=== PATIENT | male | born 1945 | race Caucasian/White ===

== ENCOUNTER → 2017-01-30 | Outpatient (CLI) | payer MEDICARE, BC ==
[2017-01-30 12:59] LABS: EKG EKG PERFORMED
[2017-01-30 14:04] LABS: CH 27.8; CHCM 31.9; HCT 42.3 % (39.0-53.0); HDW 2.72; HGB 13.4 gm/dL (13.0-17.5); MCH 27.7 pg (25.0-35.0); MCHC 31.6 g/dL (31.0-37.0); MCV 87.4 fL (80.0-100.0); Mean Platelet Volume 8.4; RBC 4.83 m/uL (4.30-5.90); RDW 13.7 % (11.5-15.5); WBC 4.8 k/uL (3.8-10.6)
[2017-01-30 14:17] LABS: Anion Gap 9 mmol/L; Blood Urea Nitrogen 22 mg/dL (9-20); Calcium 9.2 mg/dL (8.4-10.2); Carbon Dioxide 28 mmol/L (22-30); Chloride 103 mmol/L (98-107); Glucose 83 mg/dL (74-99); Non-African American GFR(MDRD) >60 (>60 ml/min/1.73 sqM); Potassium 4.9 mmol/L (3.5-5.1); Sodium 140 mmol/L (137-145)
== END | disposition home or self-care (01) ==
LOC: LABWHC1 12:29
PROVIDERS: ATTEND Family Medicine
DX: R07.9 Chest pain, unspecified (principal); R51 Headache; J01.90 Acute sinusitis, unspecified; M25.512 Pain in left shoulder
CPT/HCPCS: 80048; 84484; 85027; 93005; 36415; J0190

== ENCOUNTER → 2017-02-01 | Outpatient (CLI) | payer MEDICARE, BC ==
--- NOTE | 2017-02-01 13:27 | EST ---
DATE OF SERVICE: 02/01/2017 AGE: 71Y SEX: M HT: 68" WT: 219 lbs. Protocol Carlitos: Other: Stage: Dur. of Exercise: 4 minutes *Heart Rate Blood Pressure *Rest: 84 Rest: 136/92 * *Max. Achieved: 156 Maximum BP: 181/91 85% PMHR: 128 100% PMHR: 151 *METS: 5.8 INDICATIONS: Chest pain. MEDICATIONS: 1. Lisinopril. 2. Difluconec. 3. Lipitor. Baseline rhythm is sinus mechanism, rate 84, normal axis and intervals, normal electrocardiogram. Baseline blood pressure 136/92 mmHg. Patient exercised on Carlitos protocol for 4 minutes reaching peak rate of 156 beats per minute which is equal to 100% maximum predicted heart rate. Peak blood pressure 166/71 mmHg. Test was terminated because of fatigue. There was no chest pain. Electrocardiographic monitoring revealed no evidence of diagnostic ischemic ST deviation. FINDINGS: Baseline echocardiogram revealed normal wall motion at peak exercise. There was normal wall motion augmentation with no hypokinesia or dyskinesia. CONCLUSION: 1. Poor exercise tolerance with normal electrocardiograph response to exercise. 2. Normal stress echocardiogram with no evidence of stress-induced ischemia.
== END | disposition home or self-care (01) ==
LOC: RADNMMAIN 10:20
PROVIDERS: ATTEND Family Medicine
DX: R07.9 Chest pain, unspecified (principal); R06.00 Dyspnea, unspecified
CPT/HCPCS: 93017; 93350

== ENCOUNTER → 2017-10-08 | Outpatient (CLI) | payer MEDICARE, BC ==
--- NOTE | 2017-10-08 11:36 | PN ---
PROGRESS NOTE A 72-year-old male patient coming to see me in followup regarding his obstructive sleep apnea. This is the patient's annual check up. The patient has severe RITA with an AHI of 39 and currently is on a BiPAP pressure of 8/4 cm of water utilizing a wisp nose mask. He is doing well. He has no specific complaints. Weight has been stable. He is utilizing his BiPAP every night. He is very compliant. He is benefitting from the treatment. His [place] score is at 0. Based on the compliance data over the past 30 days, His compliancy of CPAP use is 100%. He is averaging 6.7 hours of CPAP use per night. AHI is down to 1.3 without any central apneas. No leaks around the mask. 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 Otherwise no other new complaints. The rest of the comorbidities are all inactive and stable for now. His blood pressure is under decent control. BP is 139/79, pulse 82, respirations 16, temperature 97.9, saturation 97% on room air, BMI 32.3, weight is 213, height is 5 feet 8 inches. GENERAL APPEARANCE: Calm, comfortable. Head is atraumatic, normocephalic. Neck is supple. There is no JVD. There is no goiter or neck masses. LUNGS: Clear to auscultation. Heart sounds regular rate and rhythm. Normal S1, S2. No S3. No murmurs. ABDOMEN: Soft, nontender. No organomegaly. EXTREMITIES: No edema. No cyanosis or clubbing. SKIN: No wounds or sores or ulceration. NEURO: Alert and oriented x3. There is no focal neurological deficits. IMPRESSION: 1. Symptomatic obstructive sleep apnea well treated with a BiPAP pressure of 80/40. Treatment remains successful. Baseline AHI is 38. 2. Chronic hypersomnia recovered completely with CPAP therapy. 3. Degenerative arthritis. 4. Hypertension, well controlled for now. PLAN: 1. Encourage weight loss. 2. Continue BiPAP therapy at same level of pressure. 3. Refill the mask and supplies. 4. See me back in a few year's time and follow up earlier if needed. MMODL / IJN: [id number] /
== END | disposition home or self-care (01) ==
LOC: SLEEP 09:44
PROVIDERS: ATTEND Internal Medicine Critical Care Medicine
DX: G47.33 Obstructive sleep apnea (adult) (pediatric) (principal); G47.10 Hypersomnia, unspecified; M19.90 Unspecified osteoarthritis, unspecified site; I10 Essential (primary) hypertension

== ENCOUNTER → 2017-12-12 | Outpatient (CLI) | payer BC, MEDICARE ==
--- NOTE | 2017-12-12 11:06 | US ---
EXAMINATION TYPE: US abdomen limited DATE OF EXAM: 12/12/2017 COMPARISON: NONE CLINICAL HISTORY: R10.11 RUQ PAIN. Chest and right flank pain 4 days ago, history of cholecystectomy EXAM MEASUREMENTS: Liver Length: 15.2 cm Gallbladder Wall: surgically absent CBD: 0.5 cm Right Kidney: 10.2 x 4.4 x 4.3 cm Pancreas: obscured by overlying midline bowel gas Liver: increased echogenicity, increased attenuation with decreased visualization of vessels. This i s most commonly related to hepatic steatosis and limits evaluation for hepatic masses. Gallbladder: surgically absent Evidence for sonographic Rodriguez's sign: no CBD: visualized portions wnl, limited by overlying bowel gas Right Kidney: wnl IMPRESSION: 1. Increased and heterogenous hepatic echotexture most compatible with hepatic steatosis appearing mo derate in degree. Correlate with LFTs. 2. No evidence of hydronephrosis or nephrolithiasis within the right kidney.
== END | disposition home or self-care (01) ==
LOC: RADUSWWP 09:30
PROVIDERS: ATTEND Family Medicine
DX: K76.89 Other specified diseases of liver (principal); R10.11 Right upper quadrant pain
CPT/HCPCS: 76705

== ENCOUNTER → 2018-04-15 | Outpatient (CLI) | payer MEDICARE ==
[2018-04-15 13:17] LABS: Creatinine 24 Hour,Urine 1468.8 mg/24hr (1000.0-2000.0)
== END | disposition home or self-care (01) ==
LOC: LABWHC1 11:22
PROVIDERS: ATTEND Family Medicine
DX: R94.4 Abnormal results of kidney function studies (principal)
CPT/HCPCS: 36415; 82575

== ENCOUNTER → 2018-04-23 | Outpatient (CLI) | payer MEDICARE ==
--- NOTE | 2018-04-23 11:24 | US ---
EXAMINATION TYPE: US kidneys/renal and bladder DATE OF EXAM: 04/23/2018 COMPARISON: US abd lmt CLINICAL HISTORY: R94.4 ABN KIDNEY FUNCTIONS. EXAM MEASUREMENTS: Right Kidney: 10.7 x 4.5 x 4.3 cm Left Kidney: 10.1 x 5.3 x 5.0 cm Right Kidney: No hydronephrosis or masses seen Left Kidney: No hydronephrosis or masses seen Bladder: not well distended Bilateral Jets seen: No There is no evidence for hydronephrosis at this point in time. No nephrolithiasis is seen. No dawson s are identified. The urinary bladder is anechoic. Bilateral ureteral jets are seen. IMPRESSION: No evidence of hydronephrosis or nephrolithiasis. No sonographic sequela of medical renal disease.
== END | disposition home or self-care (01) ==
LOC: RADUSWWP 10:08
PROVIDERS: ATTEND Family Medicine
DX: R94.4 Abnormal results of kidney function studies (principal)
CPT/HCPCS: 76770

== ENCOUNTER 2018-05-14 11:04 | Emergency (ER) | payer MEDICARE ==
[2018-05-14 11:14] VITALS: BP 126/77; PULSE 86; RESP 16; TEMP 97.9
--- NOTE | 2018-05-14 11:19 | ED ---
Fall HPI - General Chief Complaint: Fall Stated Complaint: lt knee pain Time Seen by Provider: 05/14/18 11:04 Source: patient, EMS, RN notes reviewed Mode of arrival: EMS Limitations: physical limitation - History of Present Illness Initial Comments: This is a 72-year-old male who states he is working on his deck this morning when he stumbled over a board and fell hyperflexing his left knee behind his back. He is brought in by EMS he states he has a lot of pain when he tries to move his left lower extremity the pain is isolated to his left knee he denies any head neck back pain other extremity injury no loss of consciousness. He is on no blood thinners. He has no other modifying factors at this time MD Complaint: fall - Related Data Previous Rx's Medication Instructions Recorded Ketorolac [Toradol] 10 mg PO Q6HR #20 tab 05/14/18 Orphenadrine [Norflex] 100 mg PO Q12H #7 tablet.er 05/14/18 Allergies Allergy/AdvReac Type Severity Reaction Status Date / Time No Known Allergies Allergy Verified 05/14/18 11:08 Review of Systems ROS Statement: Those systems with pertinent positive or pertinent negative responses have been documented in the HPI. ROS Other: All systems not noted in ROS Statement are negative. Past Medical History Past Medical History: Hypertension, Osteoarthritis (OA) History of Any Multi-Drug Resistant Organisms: None Reported Past Surgical History: Cholecystectomy, Hernia Repair Past Psychological History: No Psychological Hx Reported Smoking Status: Former smoker Past Alcohol Use History: None Reported Past Drug Use History: None Reported General Exam - General Exam Comments Initial Comments: This is a well-developed well-nourished awake alert oriented 3 male he does demonstrate a Aryln Coma Scale of 15 General appearance: alert, in no apparent distress Head exam: Present: atraumatic, normocephalic, normal inspection Eye exam: Present: normal appearance, PERRL, EOMI. Absent: scleral icterus, conjunctival injection, periorbital swelling ENT exam: Present: normal exam, mucous membranes moist Neck exam: Present: normal inspection. Absent: tenderness, meningismus, lymphadenopathy Respiratory exam: Present: normal lung sounds bilaterally. Absent: respiratory distress, wheezes, rales, rhonchi, stridor Cardiovascular Exam: Present: regular rate, normal rhythm, normal heart sounds. Absent: systolic murmur, diastolic murmur, rubs, gallop, clicks GI/Abdominal exam: Present: soft, normal bowel sounds. Absent: distended, tenderness, guarding, rebound, rigid Extremities exam: Present: tenderness, normal capillary refill, other ( Examination left lower extremity demonstrates some evidence of edema noted patella no definite step-off or crepitation decreased range of motion secondary to pain some tenderness palpation over the especially anterior and medial and lateral aspects of the knee. Unable to perform a complete evaluation due to pain at this time. Distally no evidence of any trauma no basilar neuro injuries no palpable tenderness proximal to this area. No tenderness over the hips or pelvis.). Absent: full ROM, pedal edema, joint swelling, calf tenderness Back exam: Present: normal inspection Neurological exam: Present: alert, oriented X3, CN II-XII intact Psychiatric exam: Present: normal affect, normal mood Skin exam: Present: warm, dry, intact, normal color. Absent: rash Course Vital Signs 05/14/18 11:09 Temperature 97.9 F Pulse Rate 86 Respiratory 16 Rate Blood Pressure 126/77 O2 Sat by Pulse 97 Oximetry Medical Decision Making - Medical Decision Making I did discuss findings with the patient's family. Patient does not want any pain medication at this time he'll place a knee immobilizer will be discharged with appropriate pain medication in addition to a prescription for crutches he is weight-bear as tolerated and follow up with orthopedics in excellent 2 days for reevaluation of the knee and possible MRI. - Radiology Data Radiology results: report reviewed (I did review the imaging and report no evidence of fracture or subluxation.), image reviewed Disposition Clinical Impression: Fall, Left knee sprain Disposition: HOME SELF-CARE Condition: Good Instructions: Knee Sprain (ED), Fall Prevention (ED) Prescriptions: Ketorolac [Toradol] 10 mg PO Q6HR #20 tab Orphenadrine [Norflex] 100 mg PO Q12H #7 tablet.er Is patient prescribed a controlled substance at d/c from ED?: No Referrals: Dileep Ba MD [Primary Care Provider] - 1-2 days Juan Rodriguez MD [STAFF PHYSICIAN] - 1-2 days
--- NOTE | 2018-05-14 11:36 | XR ---
EXAMINATION TYPE: XR knee 4V LT DATE OF EXAM: 05/14/2018 CLINICAL HISTORY: TECHNIQUE: Three views of the left knee are obtained. COMPARISON: None. FINDINGS: There is no acute fracture/dislocation evident in left knee. The tri-compartment joint sp aces appear within normal limits. Calcifications superimpose the soft tissues of the suprapatellar re gion consistent with calcification of the quadriceps. Calcification also projects inferior to the pat jovany. IMPRESSION: There is no acute fracture or dislocation in the left knee. Multiple calcifications superimposing the soft tissues superior and inferior to the patella indicativ e of calcification in the quadriceps tendon and patellar tendons suspected probably related to old tr auma. No significant fluid is a joint space. If symptoms persist MRI may be performed for further khalida luation.
== END 2018-05-14 12:37 | disposition home or self-care (01) ==
LOC: EC 11:04
DX: S83.92XA Sprain of unspecified site of left knee, initial encounter (principal); R40.2412 Glasgow coma scale score 13-15, at arrival to emergency department; Z87.891 Personal history of nicotine dependence; W18.09XA Striking against other object with subsequent fall, initial encounter; Y93.89 Activity, other specified
CPT/HCPCS: 99284 ×2; 73564; L1830

== ENCOUNTER 2018-05-19 14:58 | Emergency (ER) | payer MEDICARE ==
[2018-05-19] MEDS ORDERED: SODIUM CHLORIDE 0.9% 1,000 ML IV STA (15:38)
[2018-05-19 16:06] LABS: Basophils % (A) 0 %; Eosinophils # (A) 0.1 k/uL (0-0.7); Eosinophils % (A) 1 %; HCT 40.7 % (39.0-53.0); HGB 13.5 gm/dL (13.0-17.5); Lymphocytes # (A) 0.6 k/uL (1.0-4.8); Lymphocytes % (A) 8 %; MCH 28.3 pg (25.0-35.0); MCHC 33.2 g/dL (31.0-37.0); MCV 85.2 fL (80.0-100.0); Mean Platelet Volume 7.7; Monocytes # (A) 0.5 k/uL (0-1.0); Monocytes % (A) 6 %; Neutrophils # (A) 6.8 k/uL (1.3-7.7); Neutrophils % (A) 84 %; Platelet Count 160 k/uL (150-450); RBC 4.78 m/uL (4.30-5.90); RDW 13.8 % (11.5-15.5); WBC 8.1 k/uL (3.8-10.6)
[2018-05-19 16:22] LABS: Albumin 4.2 g/dL (3.5-5.0); Potassium 4.2 mmol/L (3.5-5.1); Total Bilirubin 1.3 mg/dL (0.2-1.3); Total Protein 6.3 g/dL (6.3-8.2)
[2018-05-19 16:26] LABS: Prothrombin Time 10.2 sec (9.0-12.0)
[2018-05-19 16:28] LABS: Partial Thromboplastin Time 19.9 sec (22.0-30.0)
[2018-05-19 16:33] LABS: Creatine Kinase 210 U/L (55-170)
[2018-05-19 16:46] LABS: Creatine Kinase MB 0.3 ng/mL (0.0-2.4); Troponin I <0.012 ng/mL (0.000-0.034)
--- NOTE | 2018-05-19 17:22 | CT ---
EXAMINATION TYPE: CT brain wo con DATE OF EXAM: 05/19/2018 COMPARISON: 03/16/2016 HISTORY: Multiple recent falls. Headache. CT DLP: 1100 mGycm Automated exposure control for dose reduction was used. FINDINGS: There is mild cerebral cortical atrophy. There is no mass effect nor midline shift. There is no sign of intracranial hemorrhage. The calvarium is intact. IMPRESSION: NO ACUTE INTRACRANIAL ABNORMALITY. NO CHANGE.
--- NOTE | 2018-05-19 17:24 | XR ---
EXAMINATION TYPE: XR chest 2V DATE OF EXAM: 05/19/2018 COMPARISON: NONE HISTORY: Syncope TECHNIQUE: Frontal and lateral views of the chest are obtained. FINDINGS: Heart and mediastinum are normal. Lungs are clear. Diaphragm is normal. There is some spur ring in the thoracic spine. IMPRESSION: No active cardiopulmonary disease. Normal heart.
--- NOTE | 2018-05-19 17:26 | XR ---
EXAMINATION TYPE: XR knee 4V RT DATE OF EXAM: 05/19/2018 COMPARISON: NONE HISTORY: Knee pain TECHNIQUE: 4 views FINDINGS: There is minimal spurring of the medial femoral and tibial condyles. I see no fracture nor dislocation. There is a 9 mm calcification above the patella consistent with old injury. There is a 7 mm defect in the cortical bone of the superior aspect of the patella that probably relates to old in jury. There is no sign of joint effusion. IMPRESSION: Minimal osteoarthritic changes. No fracture seen. No acute bony abnormality.
--- NOTE | 2018-05-19 18:20 | ED ---
General Adult HPI - General Chief complaint: Fall Stated complaint: knee injury, syncope Time Seen by Provider: 05/19/18 15:14 Source: patient, EMS Mode of arrival: EMS Limitations: no limitations - History of Present Illness Initial comments: 72 years old male got dizzy today he fell landed on his right knee pain he got dizzy prior to that than the right side he passed out for 2 minutes he injured his left knee weak for. He denies any head injury no neck injury no chest pain no shortness of breath no abdominal pain no frequency urgency dysuria or symptoms of TIA or CVA - Related Data Home Medications Medication Instructions Recorded Confirmed Diclofenac Sodium [Voltaren] 75 mg PO BID 05/19/18 05/19/18 Lisinopril [Prinivil] 10 mg PO HS 05/19/18 05/19/18 Naproxen Sodium [Aleve] 440 mg PO DAILY PRN 05/19/18 05/19/18 Allergies Allergy/AdvReac Type Severity Reaction Status Date / Time No Known Allergies Allergy Verified 05/19/18 15:57 Review of Systems ROS Statement: Those systems with pertinent positive or pertinent negative responses have been documented in the HPI. ROS Other: All systems not noted in ROS Statement are negative. Past Medical History Past Medical History: Hypertension, Osteoarthritis (OA) History of Any Multi-Drug Resistant Organisms: None Reported Past Surgical History: Cholecystectomy, Hernia Repair Past Psychological History: No Psychological Hx Reported Smoking Status: Former smoker Past Alcohol Use History: None Reported Past Drug Use History: None Reported General Exam - General Exam Comments Initial Comments: General: The patient is awake and alert, in no distress, and does not appear acutely ill. Skin: Skin is warm and dry and no rashes or lesions are noted. Eye: Pupils are equal, round and reactive to light, extra-ocular movements are intact; there is normal conjunctiva bilaterally. Ears, nose, mouth and throat: There are moist mucous membranes and no oral lesions. Neck: The neck is supple, there is no tenderness or JVD. Cardiovascular: There is a regular rate and rhythm. No murmur, rub or gallop is appreciated. Respiratory: To auscultation bilateral, no wheezing no rhonchi no distress respiratory [place] noticed Gastrointestinal: Soft, non-distended, non-tender abdomen without masses or organomegaly noted. There is no rebound or guarding present. Bowel sounds are unremarkable. Back: There is no tenderness to palpation in the midline. There is no obvious deformity. Musculoskeletal: Decreased range of motion over the right knee noticed some suprapatellar area effusion/swelling as well no neurovascular compromise noticed of the right distal lower extremity Neurological: CN II-XII intact, Cranial nerves III through XII are intact. There are no obvious motor or sensory deficits. Coordination appears grossly intact. Speech is normal. Psychiatric: Cooperative, appropriate mood & affect, normal judgment. Limitations: no limitations Course Vital Signs 05/19/18 15:08 Temperature 98.7 F Pulse Rate 77 Respiratory 20 Rate Blood Pressure 127/75 O2 Sat by Pulse 99 Oximetry CBC, INR, comp his metabolic panel, troponin are normal creatinine is 1.30 x- ray did not show any fracture chest x-ray and CT head were normal all these findings were discussed with the patient he does have crutches at home he do not want any pain medications he uses [id number] nonsteroidal anti- inflammatories and I agree with the area and he has appointment with the Dr. Amin the orthopedic surgeon for his left knee and he plans to see him with the right knee as well Medical Decision Making - Lab Data Result diagrams: 05/19/18 15:55 05/19/18 15:55 Lab Results 05/19/18 05/19/18 05/19/18 Range/Units 15:55 15:55 15:55 WBC 8.1 (3.8-10.6) k/uL RBC 4.78 (4.30-5.90) m/uL Hgb 13.5 (13.0-17.5) gm/dL Hct 40.7 (39.0-53.0) % MCV 85.2 (80.0-100.0) fL MCH 28.3 (25.0-35.0) pg MCHC 33.2 (31.0-37.0) g/dL RDW 13.8 (11.5-15.5) % Plt Count 160 (150-450) k/uL Neutrophils % 84 % Lymphocytes % 8 % Monocytes % 6 % Eosinophils % 1 % Basophils % 0 % Neutrophils # 6.8 (1.3-7.7) k/uL Lymphocytes # 0.6 L (1.0-4.8) k/uL Monocytes # 0.5 (0-1.0) k/uL Eosinophils # 0.1 (0-0.7) k/uL Basophils # 0.0 (0-0.2) k/uL PT (9.0-12.0) sec INR (<1.2) APTT (22.0-30.0) sec Sodium 140 (137-145) mmol/L Potassium 4.2 (3.5-5.1) mmol/L Chloride 103 (98-107) mmol/L Carbon Dioxide 25 (22-30) mmol/L Anion Gap 12 mmol/L BUN 18 (9-20) mg/dL Creatinine 1.30 H (0.66-1.25) mg/dL Est GFR (CKD-EPI)AfAm 64 (>60 ml/min/1.73 sqM) Est GFR (CKD-EPI)NonAf 55 (>60 ml/min/1.73 sqM) Glucose 84 (74-99) mg/dL Calcium 9.0 (8.4-10.2) mg/dL Total Bilirubin 1.3 (0.2-1.3) mg/dL AST 34 (17-59) U/L ALT 53 (21-72) U/L Alkaline Phosphatase 71 (38-126) U/L Total Creatine Kinase 210 H (55-170) U/L CK-MB (CK-2) 0.3 (0.0-2.4) ng/mL CK-MB (CK-2) Rel Index 0.1 Troponin I <0.012 (0.000-0.034) ng/mL Total Protein 6.3 (6.3-8.2) g/dL Albumin 4.2 (3.5-5.0) g/dL 05/19/18 Range/Units 15:55 WBC (3.8-10.6) k/uL RBC (4.30-5.90) m/uL Hgb (13.0-17.5) gm/dL Hct (39.0-53.0) % MCV (80.0-100.0) fL MCH (25.0-35.0) pg MCHC (31.0-37.0) g/dL RDW (11.5-15.5) % Plt Count (150-450) k/uL Neutrophils % % Lymphocytes % % Monocytes % % Eosinophils % % Basophils % % Neutrophils # (1.3-7.7) k/uL Lymphocytes # (1.0-4.8) k/uL Monocytes # (0-1.0) k/uL Eosinophils # (0-0.7) k/uL Basophils # (0-0.2) k/uL PT 10.2 (9.0-12.0) sec INR 1.0 (<1.2) APTT 19.9 L (22.0-30.0) sec Sodium (137-145) mmol/L Potassium (3.5-5.1) mmol/L Chloride (98-107) mmol/L Carbon Dioxide (22-30) mmol/L Anion Gap mmol/L BUN (9-20) mg/dL Creatinine (0.66-1.25) mg/dL Est GFR (CKD-EPI)AfAm (>60 ml/min/1.73 sqM) Est GFR (CKD-EPI)NonAf (>60 ml/min/1.73 sqM) Glucose (74-99) mg/dL Calcium (8.4-10.2) mg/dL Total Bilirubin (0.2-1.3) mg/dL AST (17-59) U/L ALT (21-72) U/L Alkaline Phosphatase (38-126) U/L Total Creatine Kinase (55-170) U/L CK-MB (CK-2) (0.0-2.4) ng/mL CK-MB (CK-2) Rel Index Troponin I (0.000-0.034) ng/mL Total Protein (6.3-8.2) g/dL Albumin (3.5-5.0) g/dL Disposition Clinical Impression: Syncope, Knee contusion Disposition: HOME SELF-CARE Is patient prescribed a controlled substance at d/c from ED?: No Referrals: Dileep Ba MD [Primary Care Provider] - 1-2 days Durga Amin MD [REFERRING] - 1-2 days
[2018-05-19 19:06] VITALS: BP 128/68; PULSE 70; RESP 18; TEMP 98.1
== END 2018-05-19 19:16 ==
LOC: EC 14:58
DX: S80.01XA Contusion of right knee, initial encounter (principal); R55 Syncope and collapse; I10 Essential (primary) hypertension; M19.90 Unspecified osteoarthritis, unspecified site; Z87.891 Personal history of nicotine dependence; Z79.1 Long term (current) use of non-steroidal anti-inflammatories (NSAID); Z79.899 Other long term (current) drug therapy; W18.39XA Other fall on same level, initial encounter; Y92.89 Other specified places as the place of occurrence of the external cause
CPT/HCPCS: 36415; 70450; 71046; 80053; 82550; 82553; 84484; 85025; 85610; 85730; 93005; 99285

== ENCOUNTER → 2018-10-21 | Outpatient (CLI) | payer MEDICARE ==
--- NOTE | 2018-10-21 12:46 | PN ---
PROGRESS NOTE Naun is doing well. He is a 73-year-old male patient with known history of obstructive sleep apnea, severe with an AHI of 39, currently on a BiPAP pressure of 88, over 4 cm of water. He is coming in for annual compliancy check and followup. Doing well. No specific complaints. No cardiovascular events. No heart attack or cardiac arrhythmias, no history of any CVA. He has been very compliant. He is using the with the Wisp nose mask. Based on the compliance data, the patient has been utilizing a BiPAP more than 4 hours, more than 90% of the time. Average BiPAP use around 7.1 hours per night. Leak factor is 8 L per minute and his AHI while on treatment is down to 1.8. His weight was 213, he is currently weighing around 218. No hypersomnia or sleepiness during the day. He does not fall asleep while driving. REVIEW OF SYSTEMS: 12-point review of system was done. Positive findings are mentioned above in history of present illness. There are few pounds weight gain. No headache, no altered mentation. No hypersomnia or sleepiness. No seizure activity. No chest pain. Heartburn, shortness of breath at night, no significant arthritic pain. No sleep fragmentation, no hypersomnia or sleepiness during the day. PHYSICAL EXAMINATION: BP is 110/70, pulse 98, respirations 16, temperature 97.1, weight is 218, height is 5, 8, [place] score is 0, BMI 33.1. GENERAL APPEARANCE: Calm, comfortable. Head is atraumatic, normocephalic. NECK: Supple. No JVD. No goiter or neck masses. Mallampati class IV. LUNGS: Clear to auscultation. HEART: Sounds regular rate and rhythm. Normal S1, S2. No S3, S4. No murmurs. ABDOMEN: Soft, nontender. No organomegaly. EXTREMITIES: No cyanosis or clubbing. NEUROLOGIC: Alert and oriented x3. No focal neurological deficits. PSYCHIATRIC: Negative for anxiety or depression. IMPRESSION: 1. Severe obstructive sleep apnea with an apnea-hypopnea index of 38. Currently on a BiPAP at a pressure of 8/4. The patient is in compliancy and he continues to benefit from the treatment. 2. Obesity with interval few pounds weight gain, body mass index 33.1, weight is 218. 3. Hypersomnia, recovered while on BiPAP therapy. PLAN: 1. Would offer this patient Air Fit N20 medium-size nose mask. 2. Encourage weight loss. 3. The patient is in compliance and continues to benefit from the treatment. See me back in a year's time. No issues for now. MMODL / IJN: [id number] /
== END ==
LOC: SLEEP 10:14
PROVIDERS: ATTEND Internal Medicine Critical Care Medicine
DX: G47.33 Obstructive sleep apnea (adult) (pediatric) (principal); E66.9 Obesity, unspecified; Z99.89 Dependence on other enabling machines and devices; Z68.33 Body mass index [BMI] 33.0-33.9, adult

== ENCOUNTER → 2019-07-10 | Outpatient (CLI) | payer MEDICARE ==
--- NOTE | 2019-07-10 10:24 | US ---
EXAMINATION TYPE: US kidneys/renal and bladder DATE OF EXAM: 07/10/2019 COMPARISON: 04/23/2018 CLINICAL HISTORY: 73-year-old male R94.4 abnormal kidney function. Follow-up to previous. TECHNIQUE: Multiple sonographic images of the kidneys and bladder are obtained. FINDINGS: EXAM MEASUREMENTS: Right Kidney: 10.2 x 4.1 x 4.1 cm Left Kidney: 9.8 x 5.4 x 4.1 cm No hydronephrosis on either side. Bladder: Partial distention of the bladder limits its evaluation. Bilateral Jets seen: No IMPRESSION: No hydronephrosis.
== END ==
LOC: RADUSWWP 09:23
PROVIDERS: ATTEND Family Medicine
DX: R94.4 Abnormal results of kidney function studies (principal)
CPT/HCPCS: 76770

== ENCOUNTER → 2019-10-13 | Outpatient (CLI) | payer MEDICARE ==
--- NOTE | 2019-10-13 14:14 | PN ---
PROGRESS NOTE A 74-year-old male patient with known history of obstructive sleep apnea coming in for an annual check. The patient's AHI of 39 and currently he is using BiPAP at a pressure of 8/4 cm of water. No new complaint, treatment is still successful. I checked the machine. His compliancy is showing an average use of 5.7 hours per night. Compliance for more than 4 hours of BiPAP use in order of 70%. Tidal volume is at 318. Respiratory rate is 18. Apnea-hypopnea index is down to 1.5 and his minute ventilation is 6.8 L/minutes. No fever. No chills. No significant weight gain. In fact, the patient has lost around 10-11 pound since the last evaluation. No other significant events overnight. No other health issues. No new onset cardiovascular complications. REVIEW OF SYSTEMS: A 14-point review of system was done. Positive findings were mentioned above in the history of present illness. His current vital signs are BP is 127/66, pulse 74, respirations 16, temperature 98.0, saturation 99% on room air. BMI 31.4. GENERAL APPEARANCE: Calm, comfortable. HEAD: Atraumatic, normocephalic. NECK: Supple. There is no JVD. No goiter or neck masses. LUNGS: Clear to auscultation. HEART: Sounds are regular rate and rhythm. Normal S1, S2. No murmurs. ABDOMEN: Soft, nontender. No organomegaly. EXTREMITIES: No edema. No cyanosis or clubbing. NEUROLOGIC: Alert and oriented x3. No focal neurological deficits. PSYCHIATRIC: Negative for anxiety or depression. IMPRESSION: 1. Severe symptomatic obstructive sleep apnea with an apnea-hypopnea index of 34, currently on a BiPAP at a pressure of 8/4. 2. Hypersomnia, improved with BiPAP therapy. PLAN: 1. Encourage further weight loss. 2. Continue BiPAP with the same pressure setting. 3. I offered him a Dream Wear nose mask to try and decide if this is something that he would like to use in the future. 4. See me back in a year's time in followup, earlier if needed. Treatment is successful. No need for any further adjustment. MMODL / IJN: [id number] /
== END | disposition home or self-care (01) ==
LOC: SLEEP 10:43
PROVIDERS: ATTEND Internal Medicine Critical Care Medicine
DX: G47.33 Obstructive sleep apnea (adult) (pediatric) (principal); Z99.89 Dependence on other enabling machines and devices

== ENCOUNTER → 2019-12-11 | Outpatient (CLI) | payer MEDICARE ==
--- NOTE | 2019-12-11 12:15 | CT ---
EXAMINATION TYPE: CT chest w con DATE OF EXAM: 12/11/2019 COMPARISON: None HISTORY: abnormal chest xray, lung nodule CT DLP: 480 mGycm Automated exposure control for dose reduction was used. CONTRAST: CT scan of the chest is performed with IV Contrast, patient injected with 100 mL of Isovue 300. FINDINGS: LUNGS: The lungs are grossly clear, there is no concerning parenchymal mass or nodule identified. T here is no pleural effusion or pneumothorax seen. The tracheobronchial tree is patent. MEDIASTINUM: There are no greater than 1 cm hilar or mediastinal lymph nodes. No pericardial effusi on is seen. Thoracic aorta is of normal caliber. The heart is not enlarged. UPPER ABDOMEN: No significant abnormality appreciated. OTHER: No additional significant abnormality is seen. IMPRESSION: No distinct pulmonary nodule or mass.
== END | disposition home or self-care (01) ==
LOC: RADCTMAIN 09:57
PROVIDERS: ATTEND Internal Medicine
DX: R91.1 Solitary pulmonary nodule (principal)
CPT/HCPCS: 82565; 84520; 71260; 36415; Q9967

== ENCOUNTER → 2020-01-13 | Outpatient (CLI) | payer MEDICARE ==
--- NOTE | 2020-01-13 12:47 | CT ---
EXAMINATION TYPE: CT brain wo con DATE OF EXAM: 01/13/2020 HISTORY: Headache. Trigeminal neuralgia. CT DLP: 1213 mGycm. Automated Exposure Control for Dose Reduction was Utilized. TECHNIQUE: CT scan of the head is performed without contrast. COMPARISON: CT brain May 19, 2018. FINDINGS: There is no acute intracranial hemorrhage or midline shift identified. There is diffuse v entricular and sulcal prominence consistent with diffuse age-related cerebral atrophy. There is low- attenuation in the periventricular white matter consistent with chronic small vessel ischemic change. The globes are intact and the visualized sinuses are clear. IMPRESSION: No acute intracranial hemorrhage or midline shift. There is [id number] diffuse ag e-related cerebral atrophy and chronic small vessel ischemic change redemonstrated. No significant c hange from prior CT.
--- NOTE | 2020-01-13 12:57 | US ---
EXAMINATION TYPE: US carotid duplex BILAT DATE OF EXAM: 01/13/2020 COMPARISON: NONE CLINICAL HISTORY: R51 headache,G50.0 Trigeminal neuralgia. Headache EXAM MEASUREMENTS: RIGHT: Peak Systolic Velocity (PSV) cm/sec ----- Right CCA: 69.2 ----- Right ICA: 73.5 ----- Right ECA: 67.7 ICA/CCA ratio: 1.1 RIGHT: End Diastole cm/sec ----- Right CCA: 19.8 ----- Right ICA: 29.9 ----- Right ECA: 9.6 LEFT: Peak Systolic Velocity (PSV) cm/sec ----- Left CCA: 72.2 ----- Left ICA: 81.5 ----- Left ECA: 66.9 ICA/CCA ratio: 1.1 LEFT: End Diastole cm/sec ----- Left CCA: 22.0 ----- Left ICA: 36.5 ----- Left ECA: 11.4 VERTEBRALS (direction of flow): Right Vertebral: Antegrade Left Vertebral: Antegrade Rhythm: Normal Mild amount of plaque visualized, No elevated velocities, no significant stenosis IMPRESSION: Mild degree of grayscale atheromatous plaquing with no sonographically evident hemodynam ically significant stenosis within either visualized carotid arterial system. Criteria for Assigning % of Stenosis / Diameter reduction (Estimation based on the indirect measurements of the internal carotid artery velocities (ICA PSV). 1. Normal (no stenosis)=ICA PSV < 125 cm/s: ratio < 2.0: ICA EDV<40 cm/s. 2. Less than 50% stenosis=ICA PSV < 125 cm/s: ratio < 2.0: ICA EDV<40 cm/s. 3. 50 to 69% stenosis=ICA PSV of 125 to 230 cm/s: ration 2.0 ? 4.0: ICA EDV 40-100 cm/s. 4. Greater than 70% stenosis to near occlusion= ICA PSV > 230 cm/s: ratio > 4.0: ICA EDV > 100 cm/s. 5. Near occlusion= ICA PSV velocities may be low or undetectable: variable ratio and ICA EDV. 6. Total occlusion=unable to detect flow.
--- NOTE | 2020-01-14 08:01 | ECHOF ---
Referral Reason:R51 headache,G50.0 Trigeminal neuralgia MEASUREMENTS -------- HEIGHT: 172.7 cm WEIGHT: 94.8 kg BP: RVIDd: 3.3 cm (< 3.3) IVSd: 1.4 cm (0.6 - 1.1) LVIDd: 3.4 cm (3.9 - 5.3) LVPWd: 1.5 cm (0.6 - 1.1) IVSs: 1.7 cm LVIDs: 2.5 cm LVPWs: 1.6 cm LAESV Index (A-L): 18.58 ml/m Ao Diam: 2.8 cm (2.0 - 3.7) AV Cusp: 2.2 cm (1.5 - 2.6) MV EXCURSION: 12.148 mm (> 18.000) MV EF SLOPE: 37 mm/s (70 - 150) EPSS: 1.0 cm MV E Scott: 0.52 m/s MV DecT: 224 ms MV A Scott: 0.67 m/s MV E/A Ratio: 0.78 RAP: 5.00 mmHg RVSP: 16.42 mmHg FINDINGS -------- Sinus rhythm. This was a technically adequate study. The left ventricular size is normal. There is moderate concentric left ventricular hypertrophy. O verall left ventricular systolic function is normal with, an EF between 55 - 60 %. The diastolic fi lling pattern is normal for the age of the patient 8.78. The right ventricle is mildly enlarged. Normal LA size by volume 22+/-6 ml/m2. The right atrial size is normal. Interatrial and interventricular septum intact. The aortic valve is trileaflet and appears structurally normal. There is no evidence of aortic regu rgitation. There is no evidence of aortic stenosis. There is trace to mild mitral regurgitation. Mild tricuspid regurgitation present. There is no evidence of pulmonary hypertension. The right v entricular systolic pressure, as measured by Doppler, is 16.42mmHg. Trace/mild (physiologic) pulmonic regurgitation. The aortic root size is normal. IVC Not well visulized. There is no pericardial effusion. CONCLUSIONS -------- 1. Sinus rhythm. 2. This was a technically adequate study. 3. The left ventricular size is normal. 4. There is moderate concentric left ventricular hypertrophy. 5. Overall left ventricular systolic function is normal with, an EF between 55 - 60 %. 6. The diastolic filling pattern is normal for the age of the patient 8.78 7. The right ventricle is mildly enlarged. 8. Normal LA size by volume 22+/-6 ml/m2. 9. The right atrial size is normal. 10. Interatrial and interventricular septum intact. 11. The aortic valve is trileaflet and appears structurally normal. 12. There is no evidence of aortic regurgitation. 13. There is no evidence of aortic stenosis. 14. There is trace to mild mitral regurgitation. 15. Mild tricuspid regurgitation present. 16. There is no evidence of pulmonary hypertension. 17. The right ventricular systolic pressure, as measured by Doppler, is 16.42mmHg. 18. Trace/mild (physiologic) pulmonic regurgitation. 19. The aortic root size is normal. 20. IVC Not well visulized. 21. There is no pericardial effusion. AREA FIELD PERSON: Bhargavi Rodriguez RDCS
== END | disposition home or self-care (01) ==
LOC: RADECHMAIN 11:55
PROVIDERS: ATTEND Family Medicine
DX: I67.82 Cerebral ischemia (principal); G31.9 Degenerative disease of nervous system, unspecified; I65.23 Occlusion and stenosis of bilateral carotid arteries; I08.1 Rheumatic disorders of both mitral and tricuspid valves; G50.0 Trigeminal neuralgia
CPT/HCPCS: 70450; 93306; 93880

== ENCOUNTER → 2020-12-13 | Outpatient (CLI) | payer MEDICARE ==
--- NOTE | 2020-12-13 12:52 | PN ---
PROGRESS NOTE This patient is coming in for an annual check regarding obstructive sleep apnea. The patient has severe RITA with an AHI of 34 and the patient continues to be on a BiPAP at a pressure of 8/4 cm of water. He continues to be very successfully treated while on BiPAP. No recent weight gain or weight loss. His current weight is around 218 pounds. Based on a 30-day compliancy, the patient has been averaging around 6.9 hours of CPAP use per night and CPAP use for more than 4 hours is around 70%. The leak is around 12 L/minute and tidal volume is at 360 with a rate of 17 and a minute ventilation of 6.3 L/minute and his AHI is down to 1.5. Doing well. Alert and awake. No tiredness. No fatigue. Renovo score is down to 5. No nocturnal chest pain, shortness of breath, angina or heartburn. REVIEW OF SYSTEMS: Fourteen-point review of system was done. Positive findings were mentioned in history of present illness. PHYSICAL EXAMINATION: VITAL SIGNS: BP is 126/82, pulse is 70, respirations 16, temperature 97.7 saturation 97% on room air, BMI 32.1, weight is 218. Renovo score is 4. GENERAL APPEARANCE: Obese, calm, comfortable. HEAD: Atraumatic, normocephalic. NECK: Supple. There is no JVD. There is no goiter or neck mass. LUNGS: Diminished otherwise clear. HEART: Heart sounds are regular rate and rhythm. Normal S1, S2. No S3, no S4. No murmurs. ABDOMEN: Soft, nontender. No organomegaly. EXTREMITIES: No edema. No cyanosis or clubbing. NEUROLOGIC: Awake and alert. There is no focal neurological deficits. PSYCHIATRIC: Negative for anxiety or depression. IMPRESSION: Severe symptomatic obstructive sleep apnea, AHI of 34, continues to be adequately treated. The patient is currently on BiPAP treatment with a pressure of 8/4 cm of water. Compliance data was checked. No major hypersomnia or sleepiness. No other cardiovascular complications. PLAN: 1. Keep BiPAP at same level of pressures of 8/4. 2. Refill the supplies through his DME [facility]. 3. Encourage weight loss. 4. See me back in a year's time. 5. Treatment is successful no need for any further adjustment at this point in time. MMODL / IJN: [id number] /
== END | disposition home or self-care (01) ==
LOC: SLEEP 10:34
PROVIDERS: ATTEND Internal Medicine Critical Care Medicine
DX: G47.33 Obstructive sleep apnea (adult) (pediatric) (principal); Z99.89 Dependence on other enabling machines and devices

== ENCOUNTER → 2021-08-16 | Outpatient (CLI) | payer MEDICARE ==
[2021-08-16 18:05] LABS: HCT 45.5 % (39.6-50.0); MCH 27.5 pg (27.0-32.0); MCHC 30.8 g/dL (32.0-37.0); MCV 89.4 fL (80.0-97.0); Mean Platelet Volume 11.1 fL (9.5-12.2); Platelet Count 144 X 10*3/uL (140-440); RBC 5.09 X 10*6/uL (4.40-5.60); RDW 12.9 % (11.5-14.5); WBC 6.11 X 10*3/uL (4.50-10.00)
[2021-08-16 19:30] LABS: Chol/HDL Ratio 3.46 Ratio
== END | disposition home or self-care (01) ==
LOC: LABWHC1 10:27
PROVIDERS: ATTEND Internal Medicine Cardiovascular Disease
DX: I10 Essential (primary) hypertension (principal); I25.9 Chronic ischemic heart disease, unspecified; E78.5 Hyperlipidemia, unspecified
CPT/HCPCS: 36415; 80053; 80061; 85027

== ENCOUNTER → 2021-12-19 | Outpatient (CLI) | payer MEDICARE ==
--- NOTE | 2021-12-19 18:40 | PN ---
PROGRESS NOTE Naun is 76, coming in for an annual check regarding obstructive sleep apnea. He is doing extremely well. He has severe RITA with an AHI of 34. He benefits from the CPAP therapy. He is waking up refreshed and alert during the day. He is still on a BiPAP pressure of 8/4 cm of water, doing well. No complaints. He has been averaging around 6.1 hours of BiPAP use per night with a leak of 17 L/minute, tidal volume of 380 mL and a respiratory rate of 16. His AHI is down to 1.7, indicating successful treatment. Note that he was infected with COVID and he recovered without any major difficulties. No chest pain. No shortness of breath. No hypersomnia or sleepiness. No fatigue. No other new complaints. PHYSICAL EXAMINATION: VITAL SIGNS: BP is 112/76, pulse 69, respirations 16, temperature 96.9, weight is 212. Tecumseh Score is zero. GENERAL APPEARANCE: Calm, comfortable. HEAD: Atraumatic, normocephalic. Neck is supple. No JVD. No goiter or neck masses. LUNGS: Clear to auscultation. Heart sounds are regular rate and rhythm. Normal S1, S2. No S3, S4. No murmurs. ABDOMEN: Soft, nontender. No organomegaly. EXTREMITIES: No edema. No cyanosis or clubbing. NEUROLOGIC: Awake and alert. There is no focal neurological deficit. IMPRESSION: 1. Symptomatic obstructive sleep apnea; AHI of 34, successfully treated with a BiPAP pressure of 8/4 cm of water. 2. Compliance data was checked. The patient is adequately using the machine. 3. Hypersomnia, recovered. Tecumseh score is down to zero. 4. Hyperlipidemia. 5. Hypertension. 6. History of COVID-19 infection, recovered, without any major complications. PLAN: 1. Maintain same BiPAP pressure. 2. No need for any adjustments. Supplies will be refilled and the patient will see me back in a year's time in followup, earlier if needed. MMODL / IJN: [id number] /
== END ==
LOC: SLEEP 12:57
PROVIDERS: ATTEND Internal Medicine Critical Care Medicine
DX: G47.33 Obstructive sleep apnea (adult) (pediatric) (principal); E78.5 Hyperlipidemia, unspecified; I10 Essential (primary) hypertension; Z86.16 Personal history of COVID-19; Z99.89 Dependence on other enabling machines and devices; Z87.891 Personal history of nicotine dependence

== ENCOUNTER → 2022-02-26 | Outpatient (CLI) | payer MEDICARE ==
--- NOTE | 2022-02-26 13:53 | CT ---
EXAMINATION TYPE: CT chest w con DATE OF EXAM: 02/26/2022 COMPARISON: CT dated 12/11/2019 HISTORY: NODULE CT DLP: 621 mGycm Automated exposure control for dose reduction was used. TECHNIQUE: CT scan of the chest is performed with IV Contrast, patient injected with 100ML mL of Isovue 300. FINDINGS: LUNGS: Stable 5 mm pleural-based right basal pulmonary nodule as well as 3 mm pleural-based middle lo be nodule consistent with benign nodules and requiring no further follow-up. Bilateral apical pulmona ry fibrotic changes and scarring, stable. No new or progressive lung lesion. Patent trachea and main bronchi. No pleural effusion. MEDIASTINUM: Stable scattered subcentimeter hilar and mediastinal lymph nodes. There are no greater t alvarez 1 cm hilar or mediastinal lymph nodes. No cardiomegaly. Coronary and arterial atherosclerotic ca lcifications. No pericardial effusion is seen. OTHER: Previous cholecystectomy. Fatty infiltration of the pancreatic head. Degenerative changes of the thoracic spine. IMPRESSION: Stable few pulmonary nodules without interval progression. No new or progressive lung lesion. Inciden cielo findings as described above.
== END | disposition home or self-care (01) ==
LOC: RADCTMAIN 11:08
PROVIDERS: ATTEND Internal Medicine
DX: R91.8 Other nonspecific abnormal finding of lung field (principal)
CPT/HCPCS: 82565; 84520; 71260; 36415; Q9967

== ENCOUNTER → 2023-04-25 | Outpatient (CLI) | payer MEDICARE ==
[2023-04-25 11:46] LABS: African American GFR (CKD) 73 (>60 ml/min/1.73 sqM); Blood Urea Nitrogen 16 mg/dL (9-20); Non-African American GFR(CKD) 63 (>60 ml/min/1.73 sqM)
--- NOTE | 2023-04-25 12:49 | CT ---
EXAMINATION TYPE: CT abdomen w con CT DLP: 1309.1 mGycm, Automated exposure control for dose reduction was used. 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 Coronal and sagittal reformats were performed. FINDINGS: LOWER CHEST: Unremarkable ABDOMEN LIVER: Unremarkable GALLBLADDER AND BILE DUCTS: The gallbladder is surgically absent. PANCREAS: Fatty atrophy of the pancreatic head and uncinate process. No suspicious pancreatic lesion or surrounding fat stranding or fluid collections identified. No parenchymal calcifications and assoc iated. No evidence for annular pancreas. Pancreatic duct is not dilated. SPLEEN: Unremarkable. ADRENAL GLANDS: Unremarkable. KIDNEYS AND URETERS: No evidence of hydronephrosis or renal calculus. The kidneys enhance symmetrical ly. STOMACH AND BOWEL: Stomach and duodenum are unremarkable. Enteric contrast reaches the mid small neelam l. No focal bowel wall thickening or surrounding inflammatory changes. The appendix is within normal limits. No evidence of bowel obstruction. PERITONEUM: No evidence of pneumoperitoneum or free fluid. VASCULATURE: No evidence of aortic aneurysm. MUSCULOSKELETAL: No acute osseous abnormalities. Degenerative changes of the visualized thoracal lumb ar spine. LYMPH NODES: No gross evidence for lymphadenopathy. SOFT TISSUE/ABDOMINAL WALL: Unremarkable IMPRESSION: 1. No acute abdominal process. 2. Fatty atrophy of the pancreatic head and uncinate process. No ductal dilatation or suspicious lesi on identified.
== END | disposition home or self-care (01) ==
LOC: RADCTMAIN 10:53
PROVIDERS: ATTEND Family Medicine
DX: K86.89 Other specified diseases of pancreas (principal); Q45.3 Other congenital malformations of pancreas and pancreatic duct
CPT/HCPCS: 82565; 84520; 74160; 36415; Q9967

== ENCOUNTER → 2023-09-12 | Outpatient (CLI) | payer MEDICARE ==
--- NOTE | 2023-09-12 10:38 | US ---
EXAMINATION TYPE: US abdomen complete DATE OF EXAM: 09/12/2023 COMPARISON: CT 04/25/2023, US 2018 CLINICAL INDICATION: Male, 77 years old with history of R14.0 ABDOMINAL DISTENSION; Hx cholecystectom y and hernia surgery. Patient has distension. TECHNIQUE: Multiple sonographic images of the abdomen are obtained. FINDINGS: EXAM MEASUREMENTS: Liver Length: 13.9 cm Gallbladder Wall: Surgically absent. CBD: 0.39 cm Spleen: 11.6 cm Right Kidney: 10.0 x 4.9 x 5.0 cm Left Kidney: 11.0 x 5.0 x 5.4 cm DRUM MAKER NOTES: Limited due to gas and patient body habitus. Pancreas: Not well seen Liver: Limited. Unable to visualize left lobe. Appears heterogeneous. Gallbladder: Surgically absent. CBD: Portions seen appear wnl Spleen: Appears wnl Right Kidney: No hydronephrosis or masses seen Left Kidney: No hydronephrosis or masses seen Upper IVC: Appears wnl Abd Aorta: Proximal segment appears ectatic measuring 2.8 cm AP. Distal and iliacs were obscured. Pancreas is obscured by overlying bowel gas. The liver is unremarkable without focal lesion. Gallblad greta surgically absent. Visualized portions the common bile duct within normal limits. Common bile modesto t is within normal limits. The spleen is unremarkable. No hydronephrosis, nephrolithiasis, or solid r enal mass. Upper IVC is within normal limits. Ectasia of the proximal abdominal aorta. The distal and iliac portions are obscured by overlying bowel gas. IMPRESSION: 1. No ultrasound evidence for acute process. 2. Post cholecystectomy changes. 3. Ectasia of the proximal abdominal aorta.
== END | disposition home or self-care (01) ==
LOC: RADUSWWP 09:18
PROVIDERS: ATTEND Family Medicine
DX: I77.811 Abdominal aortic ectasia (principal); R14.0 Abdominal distension (gaseous); Z90.49 Acquired absence of other specified parts of digestive tract
CPT/HCPCS: 76700